=== PATIENT | male | born 1990 | race Caucasian/White ===

== ENCOUNTER 2022-08-23 09:31 | Emergency (ER) | payer SELFPAY ==
[~2022-08-23] VITALS: Ht 172.7 cm; Wt 56.6 kg
--- NOTE | 2022-08-23 09:56 | ED GU-Male ---
General Chief Complaint: Rect Problems Stated Complaint: URINARY ISSUES Nursing Triage Note: PT AMB TO [facility] WITH CC OF RECTAL BLEEDING X1.5 MONTHS. PT STATES THAT HE HAS A HX OF HEMORRHOIDS AND AN APT WITH GASTROLOGIST October AT [place]. Source: patient Exam Limitations: no limitations History of Present Illness Date Seen by Provider: Aug 23, 2022 Time Seen by Provider: 09:34 Initial Comments 32-year-old male coming in due to hemorrhoids. They have been there for years, had increasing bleeding from them over the past couple days. He states he has been very constipated and straining. Does not take any medicines for this. He has seen in the urgent care in the past, and reportedly had normal hemoglobin at that time. He has tried Anusol which she states mostly just herbert. He has an appointment with a GI specialist on October 05 in [place], but was wondering if he could get into anybody sooner. Denies any fever, abdominal pain, dysuria, hematuria, lightheadedness, chest pain, shortness of breath, weakness, numbness, or any other concerns. Does not take any blood thinners. Allergies and Home Medications Allergies Coded Allergies: No Known Drug Allergies (Unverified , 08/23/22) Patient Home Medication List Home Medication List Reviewed: Yes Hydrocortisone (Anusol-Hc) 2.5 % Cream..g., 0.5 INCH RC DAILY Prescribed by: MARILUZ VYAS on 08/23/22 0959 Polyethylene Glycol 3350 (Miralax) 17 Gram Powd.pack, 17 GM PO DAILY Prescribed by: MARILUZ VYAS on 08/23/22 0959 Sennosides/Docusate Sodium (Senna-S Tablet) 8.6 Mg-50 Mg Tablet, 1 EACH PO DAILY Prescribed by: MRAILUZ VYAS on 08/23/22 0959 Review of Systems Review of Systems Constitutional: No fever Respiratory: no symptoms reported Cardiovascular: no symptoms reported Gastrointestinal: see HPI Past Uvvssub-Fpnnew-Jjelom Hx Patient Social History Tobacco Use?: No Use of E-Cig and/or Vaping dev: Yes E-Cig or Vaping type used: Synthetic Cannabinoids Substance use?: No Alcohol Use?: No Physical Exam Vital Signs Vital Signs - First Documented 08/23/22 09:40 Pulse 63 B/P (MAP) 146/98 (114) Pulse Ox 98 O2 Delivery Room Air Capillary Refill : Height, Weight, BMI Height: '" Weight: lbs. oz. kg; 18.00 BMI Method: General Appearance: WD/WN, no apparent distress HEENT: PERRL/EOMI, normal ENT inspection, pharynx normal Neck: non-tender, full range of motion, supple, normal inspection Cardiovascular: regular rate, rhythm, no edema, no murmur Respiratory: chest non-tender, lungs clear, normal breath sounds, no respiratory distress, no accessory muscle use Gastrointestinal: normal bowel sounds, non tender, soft; No distended, No guarding, No rebound Rectal: hemorrhoids (External hemorrhoids that currently are hemostatic) Back: normal inspection, no CVA tenderness Skin: normal color, warm/dry Progress/Results/Core Measures Suspected Sepsis SIRS Temperature: Pulse: 63 Respiratory Rate: Laboratory Tests 08/23/22 09:52: White Blood Count 4.9 Blood Pressure 146 /98 Mean: 114 Laboratory Tests 08/23/22 09:52: Platelet Count 209 Results/Orders Lab Results Laboratory Tests Test 08/23/22 09:52 Range/Units White Blood Count 4.9 4.3-11.0 10^3/uL Red Blood Count 4.74 4.30-5.52 10^6/uL Hemoglobin 14.6 13.3-17.7 g/dL Hematocrit 42 40-54 % Mean Corpuscular Volume 89 80-99 fL Mean Corpuscular Hemoglobin 31 25-34 pg Mean Corpuscular Hemoglobin Concent 35 32-36 g/dL Red Cell Distribution Width 12.0 10.0-14.5 % Platelet Count 209 130-400 10^3/uL Mean Platelet Volume 10.3 9.0-12.2 fL Immature Granulocyte % (Auto) 0 % Neutrophils (%) (Auto) 56 42-75 % Lymphocytes (%) (Auto) 29 12-44 % Monocytes (%) (Auto) 13 H 0-12 % Eosinophils (%) (Auto) 1 0-10 % Basophils (%) (Auto) 1 0-10 % Neutrophils # (Auto) 2.8 1.8-7.8 10^3/uL Lymphocytes # (Auto) 1.4 1.0-4.0 10^3/uL Monocytes # (Auto) 0.6 0.0-1.0 10^3/uL Eosinophils # (Auto) 0.1 0.0-0.3 10^3/uL Basophils # (Auto) 0.0 0.0-0.1 10^3/uL Immature Granulocyte # (Auto) 0.0 0.0-0.1 10^3/uL My Orders Orders - MARILUZ VYAS MD Cbc With Automated Diff (08/23/22 09:48) Vital Signs/I&O 08/23/22 09:40 Pulse 63 B/P (MAP) 146/98 (114) Pulse Ox 98 O2 Delivery Room Air Capillary Refill : Blood Pressure Mean: 114 Progress Note : Progress Note 32-year-old male presenting due to a bleeding external hemorrhoid. ABCs were intact and vitals were stable on presentation. Physical exam shows the external hemorrhoids, but the bleeding has since stopped. The hemorrhoids are not thrombosed at this time. I reviewed labs that he was able to pull up on his phone, and he had a hemoglobin greater than 13 about a year ago from the same issue with normal platelets. I will prescribed a bowel regimen for him. CBC obtained today to get a baseline. His hemoglobin is greater than 14, clearly no signs of chronic bleeding that is significant. I will refer him to our surgeons here to see if he can be seen sooner than October 05. I believe he is otherwise stable for discharge with outpatient follow-up. Not showing any signs of significant GI bleed. He was sent home with strict return precautions. Departure Impression Primary Impression: External hemorrhoid, bleeding Disposition: HOME, SELF-CARE Condition: Stable Departure-Patient Inst. Decision time for Depature: 10:00 Referrals: FARHAT KITCHEN DO NO,LOCAL PHYSICIAN (PCP) Primary Care Physician Patient Instructions: Hemorrhoids ED Add. Discharge Instructions: A good stool regimen is the most important thing for you to do. You do not want to have any type of straining or pushing with constipation as this will make the hemorrhoids much worse, and cause worse bleeding. Medications were sent to [facility] to help with this. You can also follow-up with Dr. Kitchen, his numbers in this paperwork and he has a surgeon here in [place]. Scripts Hydrocortisone (Anusol-Hc) 2.5 % Cream..g. 0.5 INCH RC DAILY for 30 Days, #30 GM Prov: MARILUZ VYAS MD 08/23/22 Sennosides/Docusate Sodium (Senna-S Tablet) 8.6 Mg-50 Mg Tablet 1 EACH PO DAILY for 30 Days, #30 TAB Prov: MARILUZ VYAS MD 08/23/22 Polyethylene Glycol 3350 (Miralax) 17 Gram Powd.pack 17 GM PO DAILY for 30 Days, #30 EACH Prov: MARILUZ VYAS MD 08/23/22 Work/School Note: Work Release Form Date Seen in the Emergency Department: Aug 23, 2022 Return to Work: Aug 24, 2022 Restrictions: No Restrictions MARILUZ VYAS MD Aug 23, 2022 09:56
[2022-08-23] MEDS ORDERED: POLY17PO6 PO (09:59)
[2022-08-23] MEDS ORDERED: HYDR30CR71 RC (09:59)
[2022-08-23] MEDS ORDERED: SENN-109 PO (09:59)
[2022-08-23 10:00] LABS: BASOPHILS % (AUTO) 1 % (0-10); EOSINOPHILS # (AUTO) 0.1 10^3/uL (0.0-0.3); EOSINOPHILS % (AUTO) 1 % (0-10); HEMATOCRIT 42 % (40-54); HEMOGLOBIN 14.6 g/dL (13.3-17.7); LYMPHOCYTES # (AUTO) 1.4 10^3/uL (1.0-4.0); LYMPHOCYTES % (AUTO) 29 % (12-44); MEAN CORPUSCULAR HEMOGLOBIN 31 pg (25-34); MEAN CORPUSCULAR HGB CONC 35 g/dL (32-36); MEAN CORPUSCULAR VOLUME 89 fL (80-99); MEAN PLATELET VOLUME 10.3 fL (9.0-12.2); MONOCYTES # (AUTO) 0.6 10^3/uL (0.0-1.0); MONOCYTES % (AUTO) 13 % (0-12); NEUTROPHILS # (AUTO) 2.8 10^3/uL (1.8-7.8); NEUTROPHILS % (AUTO) 56 % (42-75); PLATELET COUNT 209 10^3/uL (130-400); WHITE BLOOD COUNT 4.9 10^3/uL (4.3-11.0)
[2022-08-23 10:16] VITALS: BP 137/95
== END 2022-08-23 10:17 | disposition home or self-care (01) ==
LOC: ER 09:35
DX: K64.5 Perianal venous thrombosis (principal); F17.290 Nicotine dependence, other tobacco product, uncomplicated
CPT/HCPCS: 36415; 85025